=== PATIENT | male | born 1960 | race Caucasian/White ===

== ENCOUNTER → 2017-03-05 | Outpatient (CLI) | payer BC ==
[~2017-03-05] VITALS: Ht 175.3 cm; Wt 62.8 kg
[~2017-03-05] MED LIST: AFRI0.052 EACH NARE; ALBUAER3 INH; ASPI81TA11 PO; CARV6.25 PO; CHLORHEXIDINE GLUCONATE 2 % 1 PACK (2 CLOTHS) TOPICAL PRN; DO NOT ADM ANY ANTICOAGULANT DRUGS PRN; FAMOTIDINE 20 MG/2 ML VIAL ONE; GLYCOPYRROLATE 1 MG/5 ML SYRINGE IV PUSH ONE; HYDR-3580 PO; INSULIN HUMAN REGULAR 1,000 UNITS/10 ML VIAL SQ PRN; LACTATED RINGER'S 1000 ML IV PRN; LIDOCAINE HCL 1% PF 5 ML AMPULE OTHER ONE; LORA1TAB12 PO; METH750T PO; METOPROLOL TARTRATE 25 MG TAB PO PRN; MIDAZOLAM HCL 2 MG/2 ML VIAL IV ONE; MIDAZOLAM HCL 2 MG/2 ML VIAL ONE; MULT1TAB46 PO; NAPR500T PO; NEOSTIGMINE 3 MG/3 ML SYR IV ONE; NEUR800T PO; ONDANSETRON HCL 4 MG/2 ML VIAL IV PUSH ONE; POVIDONE IODINE 5% (ANTISEPSIS KIT) 4 APPLICATIONS EACH NARE PRN; PRAV40TA2 PO; PROPOFOL 200 MG/20 ML AMP IV ONE; REST15CA PO; ROCURONIUM INJ 50 MG/5 ML SYRINGE IV PUSH ONE; SODIUM CHLORID 0.9% 500 ML IV PRN; ePHEDrine/NS 25 MG/5 ML SYR IV ONE
--- NOTE | 2017-03-05 14:31 | PD.PROCEDR ---
GI Procedure REFERRING PHYSICIAN Dr. Elena Blas PROCEDURE PERFORMED EGD with biopsy and endoscopic ultrasound INDICATION FOR PROCEDURE Abnormal imaging showing esophagus to be thickened and complaints of dysphagia PROCEDURE: The procedure, risks and benefits were discussed with Mr. Turcios and informed consent was obtained. Anesthesia sedated him with Diprivan. He was placed in the left lateral decubitus position. EGD: The Pentax videoscope was introduced through the oropharynx and advanced to the second portion of the duodenum under direct visualization. Retroflexion was performed in the stomach. FINDINGS: The esophagus this appeared to be unremarkable with normal limits random biopsies were taken from the distal esophagus The stomach there was patchy erythema in the antrum with a single ulcer noted at the edge of the pyloric channel this was small and superficial no visible vessel biopsies were taken from the ulcer site and surrounding area the rest of the stomach was unremarkable The duodenum. Patchy erythema in the duodenal bulb this was biopsied the rest of the duodenum was unremarkable Endoscopic ultrasound: The Pentax videoscope was introduced through the oropharynx and advanced to the proximal stomach FINDINGS: The esophageal wall was homogeneous and of one thickness throughout measuring about 5 mm in thickness with a distinct 5 layer endosonographic findings, no abnormalities were noted no lymphadenopathy no masses The mediastinum was also free of any abnormalities SPECIMENS REMOVED: Esophageal, gastric, duodenal biopsies were taken COMPLICATIONS: None IMPRESSION: Antral ulcer Duodenitis Otherwise unremarkable EGD and unremarkable endoscopic ultrasound PLAN: Await biopsies Recommend esophageal manometry Follow-up in clinic after manometry Ta Higuera MD Mar 05, 2017 14:31
[2017-03-05 16:00] VITALS: BP 124/72; PULSE 60; RESP 18; TEMP 98.2; O2SAT 96
--- NOTE | 2017-03-06 07:29 | EKG ---
Date Performed: 03/05/2017 Time Performed: 08:52:18 PTAGE: 56 years EKG: SINUS BRADYCARDIA BORDERLINE SHORT NM INTERVAL ATRIAL ABNORMALITY NO PREVIOUS TRACING DOCTOR: Adithya Beckford Interpretating Date/Time 03/06/2017 07:29:03
== END ==
LOC: HSDC 08:29
PROVIDERS: ATTEND Internal Medicine Gastroenterology
DX: R13.10 Dysphagia, unspecified (principal); K29.80 Duodenitis without bleeding; K29.70 Gastritis, unspecified, without bleeding; K25.9 Gastric ulcer, unspecified as acute or chronic, without hemorrhage or perforation; R11.2 Nausea with vomiting, unspecified; Z01.810 Encounter for preprocedural cardiovascular examination
CPT/HCPCS: 00740; 43239; 43259; 88305; 88312; 93005; J2250; J2405; J2710; J7120

== ENCOUNTER → 2017-03-29 | Outpatient (CLI) | payer BC ==
[~2017-03-29] MED LIST changes: -ASPI81TA11 PO; +ASPI81TA23 PO; -CHLORHEXIDINE GLUCONATE 2 % 1 PACK (2 CLOTHS) TOPICAL PRN; -DO NOT ADM ANY ANTICOAGULANT DRUGS PRN; -FAMOTIDINE 20 MG/2 ML VIAL ONE; -GLYCOPYRROLATE 1 MG/5 ML SYRINGE IV PUSH ONE; -INSULIN HUMAN REGULAR 1,000 UNITS/10 ML VIAL SQ PRN; -LACTATED RINGER'S 1000 ML IV PRN; -LIDOCAINE HCL 1% PF 5 ML AMPULE OTHER ONE; -METOPROLOL TARTRATE 25 MG TAB PO PRN; -MIDAZOLAM HCL 2 MG/2 ML VIAL IV ONE; -MIDAZOLAM HCL 2 MG/2 ML VIAL ONE; -NAPR500T PO; +NAPR500T2 PO; -NEOSTIGMINE 3 MG/3 ML SYR IV ONE; -ONDANSETRON HCL 4 MG/2 ML VIAL IV PUSH ONE; -POVIDONE IODINE 5% (ANTISEPSIS KIT) 4 APPLICATIONS EACH NARE PRN; -PROPOFOL 200 MG/20 ML AMP IV ONE; -ROCURONIUM INJ 50 MG/5 ML SYRINGE IV PUSH ONE; -SODIUM CHLORID 0.9% 500 ML IV PRN; -ePHEDrine/NS 25 MG/5 ML SYR IV ONE
[2017-03-29 07:26] VITALS: BP 138/68; PULSE 61; RESP 16; TEMP 98.1; O2SAT 98
== END ==
LOC: HEND 06:48
PROVIDERS: ATTEND Specialist
DX: K22.4 Dyskinesia of esophagus (principal); R11.2 Nausea with vomiting, unspecified
CPT/HCPCS: 91010